=== PATIENT | female | born 1975 | race Caucasian/White ===

== ENCOUNTER 2017-02-23 17:17 | Emergency (ER) | payer BC ==
[~2017-02-23] VITALS: Ht 171.4 cm; Wt 64.5 kg
[2017-02-23 19:34] VITALS: BP 130/73
== END 2017-02-23 19:35 | disposition home or self-care (01) ==
LOC: EME 17:17
DX: Z20.3 Contact with and (suspected) exposure to rabies (principal)
CPT/HCPCS: 99281; 99283